=== PATIENT | female | born 1965 | race Caucasian/White ===

== ENCOUNTER 2018-03-11 07:10 | Day surgery (SDC) | payer MEDICARE, MEDICAID ==
[2018-03-04 12:07] LABS: BASOPHILS % (AUTO) 0.7 % (0-1); EOSINOPHILS # (AUTO) 0.2 X10'3 (0-0.9); LYMPHOCYTES # (AUTO) 1.4 X10'3 (1.1-4.8); LYMPHOCYTES % (AUTO) 24.6 % (21-51); MEAN CORPUSCULAR HEMOGLOBIN 29.5 PG (27.0-31.0); MEAN CORPUSCULAR HGB CONC 33.7 % (33.0-36.5); MEAN CORPUSCULAR VOLUME 87.4 FL (78-98); MEAN PLATELET VOLUME 8.3 FL (7.4-10.4); MONOCYTES # (AUTO) 0.3 X10'3 (0-0.9); MONOCYTES % (AUTO) 4.8 % (2-12); NEUTROPHILS # (AUTO) 3.6 X10'3 (1.8-7.7); NEUTROPHILS % (AUTO) 65.9 % (42-75); PRE OP HEMATOCRIT 40.5 % (35.0-45.0); PRE OP HEMOGLOBIN 13.6 g/dL (12.0-16.0); PRE OP PLATELET COUNT 270 X10'3 (140-440); RED BLOOD COUNT 4.63 X10'6 (4.20-5.60); RED CELL DISTRIBUTION WIDTH 12.5 % (11.5-14.5)
[2018-03-04 12:18] LABS: ALBUMIN 3.7 G/DL (3.4-5.0); ALBUMIN/GLOBULIN RATIO 1.1 (1.1-1.5); ALKALINE PHOSPHATASE 88 IU/L (46-116); BLOOD UREA NITROGEN 16 MG/DL (7-18); BUN/CREATININE RATIO 20.5 (6.6-38.0); CALCIUM 9.1 MG/DL (8.5-10.1); CHLORIDE 105 MMOL/L (99-107); CREATININE 0.78 MG/DL (0.40-0.90); PRE OP ALT 30 U/L (30-65); PRE OP ANION GAP 11 (8-16); PRE OP AST 10 U/L (10-37); PRE OP BILIRUB, TOTAL 0.3 MG/DL (0.0-1.0); PRE OP GLUCOSE 116 MG/DL (70-104); PRE OP POTASSIUM 3.6 MMOL/L (3.4-5.1); PRE OP SODIUM 142 MMOL/L (135-145); TOTAL CARBON DIOXIDE 25.6 MMOL/L (24-32); TOTAL PROTEIN 7.1 G/DL (6.4-8.2); eGFR 77 ML/MIN
[2018-03-11] VITALS (9 sets, daily range): BP systolic 130–154; BP diastolic 70–96
[~2018-03-11] VITALS: Ht 172.7 cm; Wt 127.3 kg
[~2018-03-11 07:10] MED LIST: CHRM1TAB PO; Cefazolin 2GM/50ML dext iso,osmotic IVPB IV ONE; IBUP-24 PO; MULT-933 PO; TRAM50TA2 PO; VANCOMYCIN INJ 1000 MG in NORMAL SALINE 250ml IV.SOLN IV ONE; famotidine 20mg tablet PO ONE; ringers solution, lacted 1,000 ML IV SCH
[2018-03-11] MEDS ORDERED: BUPIVAcaine/PF 2.5mg/ml (0.25%) 10ml vial ONE (09:36)
[2018-03-11] MEDS ORDERED: sevoflurane 250ml liquid IH ONE (10:07)
[2018-03-11] MEDS ORDERED: fentaNYL /PF 50mcg/ml 5ml ampule ONE (10:10)
[2018-03-11] MEDS ORDERED: midazolam 2 mg/2 ml injection ONE (10:10)
[2018-03-11] MEDS ORDERED: LIDOcaine 2% (20mg/ml) 5ml vial ONE (10:11)
[2018-03-11] MEDS ORDERED: propofol inj 20 ML IV ONE (10:11)
[2018-03-11] MEDS ORDERED: ringers solution, lacted 1,000 ML IV SCH (10:39)
[2018-03-11] MEDS ORDERED: meperidine/PF 25mg/ml syringe IV PRN ×3 (10:40)
[2018-03-11] MEDS ORDERED: proCHLORperazine 10 MG/2 ml inj IV PRN (10:40)
[2018-03-11] MEDS ORDERED: ondansetron/PF 4mg/2ml inj IV PRN (10:40)
[2018-03-11] MEDS ORDERED: morphine 4 MG/ML inj SYRINge IV PRN ×2 (10:40)
[2018-03-11] MEDS ORDERED: ondansetron/PF 4mg/2ml inj ONE (10:43)
[2018-03-11] MEDS ORDERED: dexamethasone sod phosphate 4mg/ml inj. ONE (10:43)
[2018-03-11] MEDS ORDERED: triamcinolone acetonide 40mg/ml inj ONE (10:54)
== END 2018-03-11 12:28 | disposition home or self-care (01) ==
LOC: PAS 07:10
PROVIDERS: ATTEND Orthopaedic Surgery
DX: M23.221 Derangement of posterior horn of medial meniscus due to old tear or injury, right knee (principal); M23.261 Derangement of other lateral meniscus due to old tear or injury, right knee; M22.41 Chondromalacia patellae, right knee; E66.01 Morbid (severe) obesity due to excess calories; F41.8 Other specified anxiety disorders; M25.861 Other specified joint disorders, right knee; M17.0 Bilateral primary osteoarthritis of knee; G89.29 Other chronic pain; Z98.51 Tubal ligation status; Z79.1 Long term (current) use of non-steroidal anti-inflammatories (NSAID); Z79.891 Long term (current) use of opiate analgesic; Z87.891 Personal history of nicotine dependence; Z68.41 Body mass index [BMI] 40.0-44.9, adult; Z79.899 Other long term (current) drug therapy; Z98.890 Other specified postprocedural states
CPT/HCPCS: 29873; 29879; 29880; 36415; 80053; 85025; 93005; A6449; J0690; J1100; J2001; J2175; J2250; J2405; J2704; J3010; J3301; J3370; J3490; J7030; J7120; A6250; A7000

== ENCOUNTER 2020-04-05 05:41 | Day surgery (SDC) | payer MEDICARE, MEDICAID ==
[2020-03-28 14:36] LABS: BASOPHILS # (AUTO) 0.1 X10'3 (0-0.2); BASOPHILS % (AUTO) 1.1 % (0-1); EOSINOPHILS # (AUTO) 0.3 X10'3 (0-0.9); EOSINOPHILS % (AUTO) 4.6 % (0-6); LYMPHOCYTES # (AUTO) 1.7 X10'3 (1.1-4.8); LYMPHOCYTES % (AUTO) 25.6 % (21-51); MEAN CORPUSCULAR HEMOGLOBIN 29.1 PG (27.0-31.0); MEAN CORPUSCULAR HGB CONC 33.2 g/dL (33.0-36.5); MEAN CORPUSCULAR VOLUME 87.6 FL (78-98); MEAN PLATELET VOLUME 7.6 FL (7.4-10.4); MONOCYTES # (AUTO) 0.5 X10'3 (0-0.9); MONOCYTES % (AUTO) 6.7 % (2-12); NEUTROPHILS # (AUTO) 4.2 X10'3 (1.8-7.7); PRE OP HEMATOCRIT 41.5 % (35.0-45.0); PRE OP HEMOGLOBIN 13.8 g/dL (12.0-16.0); PRE OP PLATELET COUNT 254 X10'3 (140-440); RED BLOOD COUNT 4.74 X10'6 (4.20-5.60)
[2020-03-28 14:43] LABS: ALBUMIN 4.1 G/DL (3.4-5.0); ALBUMIN/GLOBULIN RATIO 1.3 (1.1-1.5); ALKALINE PHOSPHATASE 83 IU/L (46-116); BLOOD UREA NITROGEN 20 MG/DL (7-18); BUN/CREATININE RATIO 31.7 (6.6-38.0); CALCIUM 9.5 MG/DL (8.5-10.1); CHLORIDE 106 MMOL/L (99-107); CREATININE 0.63 MG/DL (0.40-0.90); PRE OP ALT 30 U/L (30-65); PRE OP ANION GAP 9 (8-16); PRE OP AST 18 U/L (10-37); PRE OP BILIRUB, TOTAL 0.3 MG/DL (0.0-1.0); PRE OP GLUCOSE 100 MG/DL (70-104); PRE OP POTASSIUM 3.7 MMOL/L (3.4-5.1); PRE OP SODIUM 140 MMOL/L (135-145); TOTAL CARBON DIOXIDE 25.1 MMOL/L (24-32); TOTAL PROTEIN 7.2 G/DL (6.4-8.2); eGFR > 90 ML/MIN
[2020-04-05] VITALS (14 sets, daily range): BP systolic 135–156; BP diastolic 73–87
[~2020-04-05] VITALS: Ht 172.7 cm; Wt 129.3 kg
[~2020-04-05 05:41] MED LIST changes: -Cefazolin 2GM/50ML dext iso,osmotic IVPB IV ONE; -VANCOMYCIN INJ 1000 MG in NORMAL SALINE 250ml IV.SOLN IV ONE; +ceFAZolin inj. 3,000 MG in normal saline 100ml IV soln 100 ML IV ONE; +vancomycin 1,500 MG in NS 300ml IV soln IV ONE
[2020-04-05] MEDS ORDERED: triamcinolone acetonide 40mg/ml inj ONE (06:48)
[2020-04-05] MEDS ORDERED: BUPIVAcaine/PF 2.5 mg/ml (0.25%) 30ml vial ONE (06:48)
[2020-04-05] MEDS ORDERED: sevoflurane 250ml liquid IH ONE (07:17)
[2020-04-05] MEDS ORDERED: cloNIDine hcl/PF 100mcg/ml inj ONE (07:18)
[2020-04-05] MEDS ORDERED: midazolam 2 mg/2 ml injection ONE (07:20)
[2020-04-05] MEDS ORDERED: fentaNYL/PF 50MCG/1 ML 2ML syringe ONE (07:20)
[2020-04-05] MEDS ORDERED: LIDOcaine 2% (20mg/ml) 5ml vial ONE (07:22)
[2020-04-05] MEDS ORDERED: propofol inj 20 ML IV ONE (07:22)
[2020-04-05] MEDS ORDERED: ROPIVAcaine 0.5% (5mg/ml) 30ml vial ONE (07:24)
[2020-04-05] MEDS ORDERED: ringers solution, lacted 1,000 ML IV SCH (08:02)
[2020-04-05] MEDS ORDERED: proCHLORperazine 10 MG/2 ml inj IV PRN (08:05)
[2020-04-05] MEDS ORDERED: meperidine/PF 25mg/ml syringe IV PRN ×2 (08:05)
[2020-04-05] MEDS ORDERED: morphine 4 MG/ML inj SYRINge IV PRN (08:05)
[2020-04-05] MEDS ORDERED: ondansetron/PF 4mg/2ml inj IV PRN (08:05)
[2020-04-05] MEDS ORDERED: morphine 2 MG/ML inj. syringe IV PRN (08:05)
[2020-04-05] MEDS ORDERED: meperidine/PF 25mg/ml syringe ONE (08:54)
[2020-04-05] MEDS ORDERED: ondansetron/PF 4mg/2ml inj ONE (08:55)
[2020-04-05] MEDS ORDERED: dexamethasone sod phosphate 4mg/ml inj. ONE (08:55)
--- NOTE | 2020-04-05 09:34 | NUR ---
Received from OR via [facility] , accompanied by Anesthesiologist CRISTIANE and report given by Anesthesiolgist. PATIENT WITH 20G PIV IN LEFT UE RUNNING LR AT 100. RIGHT KNEE BIAS DRESSING IS CDI. + DP PRESENT. TOES PWD. VSS. 10L MASK ON WITH 97% saturations. ISAAK BRACE TO BE DONNED BY [employer]. Addendum: 04/05/20 at 0944 by Jose Fernandez RN, RN Amended: Links added.
[2020-04-05] MEDS: meperidine/PF 25mg/ml syringe IV PRN ×2 (10:09→10:24)
[2020-04-05] MEDS ORDERED: acetaminophen 1,000mg/100ml IV 100 ML IV PRN (10:35)
[2020-04-05] MEDS ORDERED: HYDROmorphone inj. 0.5 MG/0.5 ML DISP.SYRIN IV PRN ×2 (10:35)
--- NOTE | 2020-04-05 11:14 | NUR ---
PATIENT AND FAMILY AND THEY HAVE VERBALIZED UNDERSTANDING, OPPORTUNITY TO ASK QUESTIONS GIVEN AND PATIENT COMFORTABLE WITH DC. IV TAKEN OUT WITHOUT COMPLICATION. PATIENT HAS MET ALL DC CRITERIA FOR DC HOME. I HAVE REVIEWED D/C INSTRUCTIONS WITH OUT VIA WHEELCHAIR WHERE PATIENT WAS TAKEN HOME WITH ALL BELONGINGS. FAMILY GAVE PATIENT TRANSPORT HOME. CAST ELEVATOR SENT WITH PATIENT. DISCUSSED USE OF CPAP AT HOME. PATIENT DOES NOT USE ONE. SPOKE TO DAUGHTER WITH PATIENTS SPOUSE PRESENT THAT WE NEED TO HAVE AN ADULT WITH PATIENT X 24 HOURS 2' SLEEP APNEA. PATIENT IS AWARE OF APNEA AND RISKS INVOLVED AFTER HAVING GENERAL ANESTHESIA. DAUGHTER AND SON IN LAW AGREE TO HAVE AN ADULT WITH PATIENT. Addendum: 04/05/20 at 1212 by Jose Fernandez RN, RN Amended: Links added.
== END 2020-04-05 11:14 | disposition home or self-care (01) ==
LOC: PAS 05:41
PROVIDERS: ATTEND Orthopaedic Surgery
DX: S83.231A Complex tear of medial meniscus, current injury, right knee, initial encounter (principal); S83.271A Complex tear of lateral meniscus, current injury, right knee, initial encounter; M22.41 Chondromalacia patellae, right knee; G89.4 Chronic pain syndrome; G47.30 Sleep apnea, unspecified; E66.01 Morbid (severe) obesity due to excess calories; Z68.42 Body mass index [BMI] 45.0-49.9, adult; M17.0 Bilateral primary osteoarthritis of knee; M16.12 Unilateral primary osteoarthritis, left hip; Z98.890 Other specified postprocedural states; Z87.891 Personal history of nicotine dependence; Z79.899 Other long term (current) drug therapy; Z20.828 Contact with and (suspected) exposure to other viral communicable diseases; G89.18 Other acute postprocedural pain; X58.XXXA Exposure to other specified factors, initial encounter; Y93.89 Activity, other specified; Y92.89 Other specified places as the place of occurrence of the external cause; Y99.8 Other external cause status
CPT/HCPCS: 27416; 27418; 27425; 29880; 36415; 64447; 76942; 80053; 82948; 85025; 87635; 93005; C1713; J0690; J0735; J1100; J2001; J2175; J2250; J2270; J2405; J2704; J3010; J3301; J3370; J3490; J7040; J7120; L1832; A4618; A6250; A6258; A6449; A6455; A7000; J2795